=== PATIENT | female | born 1965 | race Caucasian/White ===

== ENCOUNTER 2017-04-12 08:44 | Day surgery (SDC) | payer BC ==
[2017-04-11 08:42] VITALS: BMI 19.1
[~2017-04-12 08:44] MED LIST: LACTATED RINGERS 1,000 ML IV SCH; LIDOCAINE 1% 20 ML VIAL (10MG/ML) FOR IV START INTRADERMA PRN
[2017-04-12 09:04] VITALS: RESP 16
[2017-04-12] MEDS ORDERED: PROPOFOL 10 MG/ML 20 ML VIAL IV ONE (09:37)
[2017-04-12] MEDS ORDERED: LIDOCAINE 1% INJ 10MG/ML (20 ML MDV) ONE (09:37)
--- NOTE | 2017-04-12 09:54 | P.OP ---
Date of Procedure: 04/12/17 Preoperative Diagnosis: Epigastric pain Postoperative Diagnosis: Duodenitis Gastritis Reflux esophagitis Procedure(s) Performed: EGD with biopsy using cold biopsy forceps Implants: Anesthesia: MAMTA Surgeon: Vignesh Bell Pathology: other Indications for Procedure: Operative Findings: Description of Procedure: A timeout was performed to verify the correct patient and correct procedure. Patient was on continuous vitals and pulse ox monitoring throughout the procedure. She was placed in lateral decubitus position and a bite block was inserted. A well-lubricated endoscope was passed orally. The esophagus was intubated without difficulty. The EGD was passed beyond the pylorus into the first and second portion of the duodenum. No normality is noted in the duodenum. Biopsies were taken from the duodenum 2nd an 1 st part, antrum, body , GE junction and lower esophagus using cold biopsy forceps. The scope was retroflexed. No hiatal hernia was appreciated. No mass, ulcer or bleeding noted within the gastric lumen. The GE junction is measured at 35 cm from the incisors . No evidence of reflux esophagitis. The endoscope was gradually withdrawn. No abnormality identified in the esophagus. Patient tolerated the procedure well and was taken to post anesthesia care unit in stable condition. Plan - Discharge Summary New Discharge Prescriptions: No Action traMADol HCL [Ultram] 50 mg PO Q6HR PRN PRN Reason: Pain Ondansetron [Zofran] 4 mg PO TID-W/MEALS PRN PRN Reason: Nausea And Vomiting Sucralfate [Carafate] 1 gm PO ACHS HYDROcodone/APAP 5-325MG [[place] 5-325] 1 tab PO Q6HR PRN PRN Reason: Pain Omeprazole [PriLOSEC] 40 mg PO BID Discharge Medication List HYDROcodone/APAP 5-325MG [[place] 5-325] 1 tab PO Q6HR PRN 04/11/17 [History] Omeprazole [PriLOSEC] 40 mg PO BID 04/11/17 [History] Ondansetron [Zofran] 4 mg PO TID-W/MEALS PRN 04/11/17 [History] Sucralfate [Carafate] 1 gm PO ACHS 04/11/17 [History] traMADol HCL [Ultram] 50 mg PO Q6HR PRN 04/11/17 [History]
[2017-04-12] MEDS ORDERED: SUCRALFATE 1 GM TAB PO STA (09:55)
[2017-04-12 10:35] VITALS: BP 136/80; PULSE 85
== END 2017-04-12 10:50 | disposition home or self-care (01) ==
LOC: ORWHC2ENDO 08:44
PROVIDERS: ATTEND Surgery
DX: K21.0 Gastro-esophageal reflux disease with esophagitis (principal); K29.50 Unspecified chronic gastritis without bleeding; K29.80 Duodenitis without bleeding; K52.9 Noninfective gastroenteritis and colitis, unspecified; Z79.891 Long term (current) use of opiate analgesic; Z79.899 Other long term (current) drug therapy; F17.200 Nicotine dependence, unspecified, uncomplicated
CPT/HCPCS: 88305; 88342; 43239; J2001; J2704

== ENCOUNTER 2017-04-18 11:09 | Day surgery (SDC) | payer BC ==
[~2017-04-18 11:09] MED LIST changes: +HEPARIN SODIUM,PORCINE 5,000 UNIT/ML 1 ML VIAL SQ ONE; -LACTATED RINGERS 1,000 ML IV SCH; -LIDOCAINE 1% 20 ML VIAL (10MG/ML) FOR IV START INTRADERMA PRN; +ceFAZolin 2 GM in SODIUM CHLORIDE 0.9% 100 ML IVPB ONE
[2017-04-18] MEDS ORDERED: DEXAMETHASONE SOD PHOSPHATE 10 MG/ML 1 ML VIAL IV ONE (11:28)
[2017-04-18] MEDS ORDERED: SCOPOLAMINE 1.5MG/72HR PATCH TRANSDERM ONE (11:28)
[2017-04-18] MEDS ORDERED: ONDANSETRON 4 MG/2 ML VIAL IVP ONE (11:28)
[2017-04-18] MEDS ORDERED: LACTATED RINGERS 1,000 ML IV SCH ×2 (11:28→12:30)
[2017-04-18] MEDS ORDERED: LIDOCAINE 1% 20 ML VIAL (10MG/ML) FOR IV START INTRADERMA PRN (11:28)
[2017-04-18] MEDS ORDERED: MIDAZOLAM 2 MG/2 ML VIAL IV PRN (12:16)
[2017-04-18] MEDS ORDERED: MIDAZOLAM 2 MG/2 ML VIAL IV ONE (12:21)
[2017-04-18] MEDS ORDERED: HYDROmorphone (PF) 1 MG/ML ONE (15:26)
[2017-04-18] MEDS ORDERED: NEOSTIGMINE 1 MG/ML 10 ML VIAL ONE (15:26)
[2017-04-18] MEDS ORDERED: MIDAZOLAM 2 MG/2 ML VIAL ONE (15:26)
[2017-04-18] MEDS ORDERED: LIDOCAINE 1% INJ 10MG/ML (20 ML MDV) ONE (15:26)
[2017-04-18] MEDS ORDERED: PROPOFOL 10 MG/ML 20 ML VIAL IV ONE (15:26)
[2017-04-18] MEDS ORDERED: ROCURONIUM BROMIDE 10 MG/ML 10 ML VIAL IV ONE (15:26)
[2017-04-18] MEDS ORDERED: SUCCINYLCHOLINE CHLORIDE 100 MG/5 ML SYR IV ONE (15:26)
[2017-04-18] MEDS ORDERED: fentaNYL (PF) 50 MCG/ML 2 ML AMP ONE (15:26)
[2017-04-18] MEDS ORDERED: GLYCOPYRROLATE 0.2 MG/ML 2 ML VIAL ONE (15:26)
[2017-04-18] MEDS ORDERED: SODIUM CHLORIDE 0.9% 100 ML with ceFAZolin 2,000 MG IV ONE ×2 (15:39)
[2017-04-18] MEDS ORDERED: BUPIVACAIN-EPI 0.5%-1:200,000 30 ML VIAL SQ ONE ×3 (15:43→16:14)
[2017-04-18] MEDS ORDERED: LACTATED RINGERS 1,000 ML IV ONE ×4 (16:01→17:57)
--- NOTE | 2017-04-18 16:40 | P.OP ---
Date of Procedure: 04/18/17 Preoperative Diagnosis: Right upper quadrant pain Postoperative Diagnosis: Chronic cholecystitis Procedure(s) Performed: Laparoscopic cholecystectomy Implants: Anesthesia: MAMTA Surgeon: Vignesh Bell Pathology: other Condition: stable Disposition: PACU Indications for Procedure: Operative Findings: Description of Procedure: The patient is a 52-year-old female who presented with epigastric and upper abdominal pain which localized in the right upper quadrant was tender Clinical diagnosis of chronic cholecystitis was made. The risks benefits and possible complications of the procedure were discussed in detail and informed consent was obtained. Patient was identified in the preop operating holding area questions were answered and she was taken back to the operating room where she was placed in the supine position. She was given general anesthesia with endotracheal intubation followed by the placement of an orogastric tube and a Garsia catheter appropriate timeout was called the indication procedure ALLERGIES medications from her prophylaxis were all discussed. Abdomen is prepped and draped in the usual sterile surgical fashion Duarte's point was identified and after making an incision Veress needle was introduced. Abdominous insufflated to 15 mmHg after checking with drop test. The Veress needle was then removed and then Optiview technique was used to enter the abdominal cavity. Once that was done a 10 mm epigastric port and two 5 mm right upper quadrant ports were placed.the gallbladder was retracted cephalad and superiorly.The fundus was retracted so as to make the Calot's triangle more visible. There were inflammatory peritoneal adhesions and the gallbladder was distended. The adhesions were taken down with the help of blunt dissection and using some electrocautery, skeletonizing the cystic duct and the multiple branches of the cystic artery. Cystic duct was clipped proximally and distally followed by clipping of the branches of the cystic artery following which they were transected sharply with the help of the floridalma. The gallbladder was then taken off the gallbladder fossa with the help of electrocautery and placed in an Endo Catch bag and removed through the 10 m port site after dilating the port site with a Loan. The port was replaced and the gallbladder fossa was inspected and hemostasis was secured with the help of electrocautery the abdomen was thoroughly irrigated and sucked dry. Trae were noted to be in the appropriate position at this time to take procedure was terminated. the 10 mm port was removed and the port site was closed with the help of a Omar Crooks using 0 Vicryl.The Gas was shut off and all the 5 mm ports were removed. The abdomen was thoroughly desufflated. The remaining local anesthesia was infiltrated into the incisions and the incisions were closed with the help of 4-0 Monocryl . Dermabond was applied patient was extubated and taken to recovery room in stable condition There were no complications. Plan - Discharge Summary New Discharge Prescriptions: No Action traMADol HCL [Ultram] 50 mg PO Q6HR PRN PRN Reason: Pain Ondansetron [Zofran] 4 mg PO TID-W/MEALS PRN PRN Reason: Nausea And Vomiting Sucralfate [Carafate] 1 gm PO ACHS HYDROcodone/APAP 5-325MG [[place] 5-325] 1 tab PO Q6HR PRN PRN Reason: Pain Omeprazole [PriLOSEC] 40 mg PO BID Discharge Medication List HYDROcodone/APAP 5-325MG [[place] 5-325] 1 tab PO Q6HR PRN 04/11/17 [History] Omeprazole [PriLOSEC] 40 mg PO BID 04/11/17 [History] Ondansetron [Zofran] 4 mg PO TID-W/MEALS PRN 04/11/17 [History] Sucralfate [Carafate] 1 gm PO ACHS 04/11/17 [History] traMADol HCL [Ultram] 50 mg PO Q6HR PRN 04/11/17 [History] Follow up Appointment(s)/Referral(s): Vignesh Bell MD [STAFF PHYSICIAN] - 10 Days Activity/Diet/Wound Care/Special Instructions: Regular diet AMbulate as tolerated Use incentive spirometer as directed No driving on pain medications or when having pain May shower in 24 hours No heavy liftin more than 20 lbs for 6 week Discharge Disposition: HOME SELF-CARE
[2017-04-18 16:52] VITALS: TEMP 97.2
[2017-04-18 16:55] VITALS: RESP 16
[2017-04-18] MEDS: HYDROmorphone 1 MG/ML 1 ML SYRINGE IVP PRN ×2 (17:00→17:09)
[2017-04-18] MEDS ORDERED: MEPERIDINE 50 MG/ML SYRINGE IVP ONE ×2 (17:21→17:38)
[2017-04-18] MEDS ORDERED: HYDROcodone/APAP 5-325MG 1 EACH TAB PO ONE (18:20)
[2017-04-18 18:34] VITALS: BP 90/55; PULSE 76
== END 2017-04-18 18:58 | disposition home or self-care (01) ==
LOC: OR 11:09
PROVIDERS: ATTEND Surgery
DX: K81.1 Chronic cholecystitis (principal); F17.200 Nicotine dependence, unspecified, uncomplicated; K21.9 Gastro-esophageal reflux disease without esophagitis; Z79.899 Other long term (current) drug therapy
CPT/HCPCS: 47562; 88304; J2250; J1644; J1100; J2710; J2175; J2405; J2001; J3010; J1170; J0690; J0330; J2704

== ENCOUNTER → 2017-05-21 | Outpatient (CLI) | payer BC ==
--- NOTE | 2017-05-21 13:26 | CT ---
EXAMINATION TYPE: CT abdomen pelvis w con DATE OF EXAM: 05/21/2017 COMPARISON: 04/28/2012 HISTORY: 52-year-old female with generalized abdominal pain. History of cholecystectomy in April 2017. TECHNIQUE: Contiguous axial scanning of the abdomen and pelvis following administration of 100 ml Omn ipaque 300 IV contrast. Delayed images through the kidneys and coronal/sagittal reconstructions perf ormed. CT DLP: 677 mGycm Automated exposure control for dose reduction was used. FINDINGS: The heart is normal size without pericardial effusion. Lung bases are clear without pleural effusion. No focal liver lesions seen. Cholecystectomy clips are present. There has been interval enlargement of the bile duct measuring 7 mm versus 4 mm, previously. Portal venous system is patent. Adrenal glands, kidneys with extrarenal pelves, spleen, and pancreas show no gross abnormality. Interval cholecystectomy. There is a 7 mm nodular density along the left paramedian upper abdominal l inea alba, axial image 19 and some adjacent stranding in the subcutaneous fat., Axial image 19 and 20 . No dilated small bowel, free fluid, or free air. No mesenteric or retroperitoneal lymphadenopathy francisca ntified. Oral contrast has progressed to the distal transverse colon. There is moderate stool in the transvers e colon. Some mildly prominent air-filled loops of small bowel measure up to 2.5 cm. No abnormal dilatation or transition point. Bladder is partially distended with mild circumferential wall thickening. Uterus and ovaries are visu alized. Trace cul-de-sac free fluid likely physiologic. Bones: Mild degenerative changes at the hips. Disc/endplate degenerative change at L5-S1 and facet ar thropathy mid to lower lumbar spine with trace grade 1 retrolisthesis at L3-L4. No osseous destructiv e process. IMPRESSION: 1. INTERVAL ENLARGEMENT OF THE BILE DUCT FROM 4 MM TO 7 MM CAN BE IN KEEPING WITH POSTCHOLECYSTECTOMY STATUS. CORRELATE WITH ALKALINE PHOSPHATASE AND BILIRUBIN LEVELS. 2. A 7 MM NODULAR DENSITY ALONG THE UPPER ABDOMINAL LINEA ALBA WITH ADJACENT SUBCUTANEOUS FAT STRANDI NG. CORRELATE FOR LOCAL INFLAMMATION SUCH FROM CELLULITIS OR SOME TYPE OF FOREIGN BODY REACTION/S UTURE GRANULOMA. 3. CIRCUMFERENTIAL BLADDER WALL THICKENING; CORRELATE TO EXCLUDE CYSTITIS.
== END | disposition home or self-care (01) ==
LOC: RADCTMAIN 10:37
PROVIDERS: ATTEND Surgery
DX: K83.8 Other specified diseases of biliary tract (principal); N32.89 Other specified disorders of bladder; R10.84 Generalized abdominal pain; Z90.49 Acquired absence of other specified parts of digestive tract
CPT/HCPCS: 74177; Q9967

== ENCOUNTER → 2017-05-23 | Outpatient (CLI) | payer BC ==
[2017-05-23 14:33] LABS: ALT 670 U/L (9-52); AST 378 U/L (14-36); Alkaline Phosphatase 217 U/L (38-126); Amylase 122 U/L (30-110); Anion Gap 11 mmol/L; Bilirubin, Delta 0.3 mg/dL (0.0-0.2); Blood Urea Nitrogen 12 mg/dL (7-17); Calcium 11.5 mg/dL (8.4-10.2); Carbon Dioxide 27 mmol/L (22-30); Chloride 102 mmol/L (98-107); Glucose 87 mg/dL (74-99); Non-African American GFR(MDRD) >60 (>60 ml/min/1.73 sqM); Potassium 4.8 mmol/L (3.5-5.1); Sodium 140 mmol/L (137-145); Total Bilirubin 0.8 mg/dL (0.2-1.3); Total Protein 7.8 g/dL (6.3-8.2)
== END | disposition home or self-care (01) ==
LOC: LABWHC1 13:48
PROVIDERS: ATTEND Surgery
DX: K83.8 Other specified diseases of biliary tract (principal)
CPT/HCPCS: 36415; 80053; 82150; 82248; 83690

== ENCOUNTER → 2017-05-30 | Outpatient (CLI) | payer BC ==
[2017-05-30 14:28] LABS: ALT 169 U/L (9-52); AST 41 U/L (14-36); Alkaline Phosphatase 156 U/L (38-126); Bilirubin, Delta 0.2 mg/dL (0.0-0.2); Total Bilirubin 0.5 mg/dL (0.2-1.3); Total Protein 7.2 g/dL (6.3-8.2)
[2017-05-30 15:06] LABS: Hepatitis B Core IgM Index 0.03
[2017-05-30 15:17] LABS: Hepatitis C Virus IgG Ab Negative (Negative); Hepatitis C Virus IgG Index 0.09
== END | disposition home or self-care (01) ==
LOC: LABWHC1 14:00
PROVIDERS: ATTEND Physician Assistant
DX: R74.8 Abnormal levels of other serum enzymes (principal)
CPT/HCPCS: 36415; 80074; 80076

== ENCOUNTER → 2017-06-13 | Outpatient (CLI) | payer BC ==
[2017-06-13 21:17] LABS: Bilirubin, Delta 0.3 mg/dL (0.0-0.2); Total Bilirubin 0.8 mg/dL (0.2-1.3); Total Protein 9.2 g/dL (6.3-8.2)
--- NOTE | 2017-06-14 07:42 | MR ---
EXAMINATION TYPE: MR liver wo/w con DATE OF EXAM: 06/13/2017 COMPARISON: CT abdomen and pelvis exams May 21, 2017 and older study April 28, 2012. HISTORY: Abnormal liver function CONTRAST: Standard multiplanar, multisequence MRI departmental protocol utilizing 5.0 mL intravenous Gadavist g adolinium contrast. Imaging of the abdomen is performed focusing on the liver. FINDINGS: LIVER/GB: Liver is overall normal in size. In posterior segment right hepatic dome there are 2 tiny n onenhancing round T2 hyperintense foci felt to reflect simple cysts seen best on images 32 and 33 ser ies 601 measuring up to 3 mm in size no worrisome solid or cystic intrahepatic mass is identified. No suspicious enhancement is seen. Gallbladder is surgically absent. Common bile duct measures up to 8 to 9 mm which is within normal limits after cholecystectomy. No suspicious intrahepatic ductal dilata tion is seen. No significant fatty infiltration seen on in and out of phase imaging. OTHER: Lung bases are grossly clear, there is no pleural or pericardial effusion seen. The spleen, pa ncreas, and both adrenal glands are normal in size and appear grossly unremarkable. Left kidney is sl ightly asymmetrically larger versus right kidney, this is unchanged from 2012 CT. No hydronephrosis i s evident bilaterally. There is no suspicious small or large bowel dilatation. No concerning abdomina l fluid collection or ascites is seen. No greater than 1 cm abdominal adenopathy is noted. There is f acet arthropathy and disc space narrowing in the lower lumbar spine most prominent at lumbosacral loren ction. IMPRESSION: No worrisome intrahepatic mass or intrapelvic ductal dilatation is seen.
== END | disposition home or self-care (01) ==
LOC: RADMRIMAIN 20:01
PROVIDERS: ATTEND Physician Assistant
DX: R94.5 Abnormal results of liver function studies (principal)
CPT/HCPCS: 80076; 74183; 36415; A9581

== ENCOUNTER 2018-01-27 11:33 | Inpatient (IN) | payer BC ==
[2018-01-27] MEDS: DEXTROSE 5%-0.45% NACL 1,000 ML IV SCH ×2 (15:05→21:20)
[2018-01-27] MEDS ORDERED: PIPERACILLIN-TAZOBACTAM 3.375 GM in DEXTROSE/WATER 1 50ML.BAG IVPB SCH (17:00)
[2018-01-27] MEDS: ACETAMINOPHEN TAB 325 MG TAB PO PRN (19:29)
[2018-01-27] MEDS: THIAMINE 100 MG TAB PO SCH (21:19)
[2018-01-28] MEDS ORDERED: PIPERACILLIN-TAZOBACTAM 3.375 GM VIAL IVPB SCH
[2018-01-28] MEDS: PIPERACILLIN-TAZOBACTAM 3.375 GM in DEXTROSE/WATER 1 50ML.BAG IVPB SCH ×2 (00:04→07:45)
[2018-01-28] MEDS: DEXTROSE 5%-0.45% NACL 1,000 ML IV SCH ×2 (07:44→15:41)
[2018-01-28] MEDS: ACETAMINOPHEN TAB 325 MG TAB PO PRN ×3 (07:46→21:06)
[2018-01-28] MEDS: NICOTINE 21MG/24HR PATCH TRANSDERM SCH (07:47)
[2018-01-28] MEDS: PANTOPRAZOLE 40 MG TABLET PO SCH (07:47)
[2018-01-28] MEDS: ENOXAPARIN 40 MG/0.4 ML SYRINGE SQ SCH (07:47)
[2018-01-28] MEDS: THIAMINE 100 MG TAB PO SCH ×2 (07:47→21:04)
--- NOTE | 2018-01-28 08:17 | XR ---
EXAMINATION TYPE: XR chest 2V DATE OF EXAM: 01/28/2018 COMPARISON: NONE HISTORY: Shortness of breath TECHNIQUE: Frontal and lateral views of the chest are obtained. FINDINGS: Scattered senescent parenchymal changes noted. No evidence for infiltrate. No evidence for atelectasis. Heart size is stable. Mediastinal structures are stable and grossly unremarkable. No evidence for hilar prominence. Degenerative changes dorsal spine. IMPRESSION: 1. No evidence for acute pulmonary disease.
[2018-01-28 08:43] LABS: Basophils % (A) 0 %; Eosinophils # (A) 0.2 k/uL (0-0.7); Eosinophils % (A) 4 %; HCT 35.4 % (34.0-46.0); HGB 11.3 gm/dL (11.4-16.0); Lymphocytes # (A) 1.7 k/uL (1.0-4.8); Lymphocytes % (A) 31 %; MCHC 31.9 g/dL (31.0-37.0); MCV 97.1 fL (80.0-100.0); Mean Platelet Volume 7.6; Monocytes # (A) 0.4 k/uL (0-1.0); Monocytes % (A) 7 %; Neutrophils # (A) 2.9 k/uL (1.3-7.7); Neutrophils % (A) 53 %; Platelet Count 257 k/uL (150-450); RBC 3.64 m/uL (3.80-5.40); RDW 13.4 % (11.5-15.5); WBC 5.5 k/uL (3.8-10.6)
[2018-01-28 09:03] LABS: ALT 35 U/L (9-52); AST 24 U/L (14-36); Albumin 3.3 g/dL (3.5-5.0); Alkaline Phosphatase 72 U/L (38-126); Anion Gap 8 mmol/L; Blood Urea Nitrogen 5 mg/dL (7-17); Calcium 10.4 mg/dL (8.4-10.2); Carbon Dioxide 26 mmol/L (22-30); Chloride 111 mmol/L (98-107); Glucose 92 mg/dL (74-99); Potassium 4.2 mmol/L (3.5-5.1); Sodium 145 mmol/L (137-145); Total Bilirubin 0.8 mg/dL (0.2-1.3); Total Protein 5.9 g/dL (6.3-8.2)
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
[2018-01-28] MEDS: AMOXIC-POT CLAV 875-125MG 1 EACH TAB PO SCH (21:05)
[2018-01-29 05:57] VITALS: RESP 16
[2018-01-29] MEDS: PANTOPRAZOLE 40 MG TABLET PO SCH (07:34)
[2018-01-29] MEDS: NICOTINE 21MG/24HR PATCH TRANSDERM SCH (07:34)
[2018-01-29] MEDS: ENOXAPARIN 40 MG/0.4 ML SYRINGE SQ SCH (07:34)
[2018-01-29] MEDS: THIAMINE 100 MG TAB PO SCH (07:34)
[2018-01-29] MEDS: ACETAMINOPHEN TAB 325 MG TAB PO PRN (07:34)
[2018-01-29] MEDS: AMOXIC-POT CLAV 875-125MG 1 EACH TAB PO SCH (07:34)
[2018-01-29 14:46] VITALS: BP 107/69; PULSE 103; TEMP 98.1
--- NOTE | 2018-01-29 15:35 | XR ---
EXAM TYPE: LUMBAR SPINE X RAY SERIES COMPARISON: NONE HISTORY: Back pain TECHNIQUE: 3 views are submitted. FINDINGS: Alignment is anatomic. The pedicles are intact. The transverse processes are intact. There is no s pondylolysis or spondylolisthesis. Slight curvature the spine with hypertrophic changes noted. Surgi rosmery clips in the gallbladder fossa. Vacuum disc and severe facet arthropathy L5-S1. Severe facet arthropathy L4-5 with moderate degenerat sebastian disc disease. Mild degenerative disc disease at the remaining levels. IMPRESSION: 1. Multilevel degenerative disc disease with severe changes at L5-S1 with vacuum disc.
--- NOTE | 2018-01-29 21:48 | DS ---
DISCHARGE SUMMARY DATE OF ADMISSION: 01/27/2018 DATE OF DISCHARGE: 01/29/2018 FINAL DIAGNOSES: 1. Major depression with suicide attempt. 2. Chronic nicotine dependence. 3. Primary osteoarthritis of different joints, including the lumbar spine. 4. Chronic right upper quadrant pain, for which patient is due to follow up at [facility]. 5. Aspiration pneumonia from altered mental status. HOSPITAL COURSE: This patient's boyfriend killed himself about a week ago. Patient took an overdose of medications and was transferred from [facility] to [facility]. The patient had aspiration pneumonia, which is clinically resolved. The patient does smoke cigarettes. The patient was having lower back pain, found to have evidence of osteoarthritis. She was prescribed Tylenol for the same. Patient was told to get an appointment at [facility]. Patient had a sitter. The patient is being sent down to the psychiatry unit, as patient was also petitioned and certified. Otherwise patient is doing better, tolerating a diet. On examination: PSYCHIATRIC: Patient is looking better, communicating. LUNGS: Fair air entry. CONSULTATIONS: 1. Dr. Pandey from Psychiatry. 2. Dr. Prescott from Pulmonary. DISCHARGE MEDICATIONS: 1. Protonix 40 mg a day. 2. Thiamine 100 mg p.o. daily. 3. [place] 7.5/325 one tablet q.6 p.r.n. 4. Plain Tylenol 650 mg q.6 p.r.n. The patient when discharged should follow up at [facility] and with her family doctor. Patient also advised against smoking. MMODL / IJN: [id number] /
--- NOTE | 2018-01-30 08:57 | CDI ---
Last Revision, September 2017 Acute respiratory failure secondary to aspiration pneumonia, unspecified Documentation Clarification Form Date: 01/30/2018 8:48:00 PM From: Modesta Lyn CCS, CCDS Admit Date: 01/27/2018 1:45:00 PM Patient Name: Kendra De Oliveira Visit Number: [id number] Discharge Date: ATTENTION: The Clinical Documentation Specialists (CDI) and [facility] Coding Staff appreciate your assistance in clarifying documentation. Please respond to the clarification below the line at the bottom and electronically sign. The CDI & [facility] Coding staff will review the response and follow-up if needed. Please note: Queries are made part of the Legal Health Record. If you have any questions, please contact the author of this message via ITS. Dr. Brenda Prescott: 52 yo female, transferred from [facility] ER on 01/25/19 after ingesting a large amount of Lyrica, Valium & other unidentified prescription medications, also alcohol found in her system, intentional suicide attempt and diagnosed with aspiration pneumonia. Documentation and location in medical record included "ventilator dependent respiratory failure". The patient is not on home O2 or have a permanent tracheostomy. Clinical Indicators: Patient was intubated & extubated next day at [facility]. Vital signs on arrival to [facility]: T 97.7, P 92, R 20, BP 101/66, PO 92 RA. Treatment: IV Dextrose, IV Zosyn, po Thiamine. In your professional opinion, can you please clarify the patient's respiratory failure: Acuity: o Acute o Chronic o Acute on Chronic Specificity: o Respiratory Failure, further specify (if known): o With hypercapnia? o With hypoxia? o Other, please specify o Unable to determine Please continue to document in your progress notes and discharge summary in order to capture severity of illness and risk of mortality. Include clinical findings that support your diagnosis. MTDD
== END 2018-01-29 16:15 | disposition still patient (30) | DRG 917 ==
LOC: 4MS4W 13:45
PROVIDERS: ADMIT Hospitalist; ATTEND Hospitalist
DX: T42.4X2A Poisoning by benzodiazepines, intentional self-harm, initial encounter (principal); J96.00 Acute respiratory failure, unspecified whether with hypoxia or hypercapnia; J69.0 Pneumonitis due to inhalation of food and vomit; Z99.11 Dependence on respirator [ventilator] status; F17.210 Nicotine dependence, cigarettes, uncomplicated; F32.9 Major depressive disorder, single episode, unspecified; R13.10 Dysphagia, unspecified; K21.9 Gastro-esophageal reflux disease without esophagitis; M15.9 Polyosteoarthritis, unspecified; M47.9 Spondylosis, unspecified; Z80.1 Family history of malignant neoplasm of trachea, bronchus and lung; Z80.8 Family history of malignant neoplasm of other organs or systems; G89.29 Other chronic pain; Z71.6 Tobacco abuse counseling
CPT/HCPCS: 71046; 72100; 80053; 85025

== ENCOUNTER 2018-01-29 15:40 | Inpatient (IN) | payer BC ==
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
[2018-01-29] MEDS ORDERED: MAG HYDROX/AL HYDROX/SIMETH 30 ML CUP PO PRN (16:51)
[2018-01-29] MEDS: IBUPROFEN 400 MG TAB PO PRN (17:30)
[2018-01-29] MEDS: ACETAMINOPHEN TAB 325 MG TAB PO PRN (20:44)
[2018-01-29] MEDS: AMOXIC-POT CLAV 875-125MG 1 EACH TAB PO SCH (20:45)
[2018-01-29] MEDS: BACITRACIN 500 UNIT/GM OINT 28.4 GM TUBE TOPICAL SCH (20:45)
[2018-01-29] MEDS: HYDROcodone/APAP 5-325MG 1 EACH TAB PO PRN (22:06)
[2018-01-30] MEDS: NICOTINE 21MG/24HR PATCH TRANSDERM SCH (08:02)
[2018-01-30] MEDS: AMOXIC-POT CLAV 875-125MG 1 EACH TAB PO SCH ×2 (08:02→20:57)
[2018-01-30] MEDS: PANTOPRAZOLE 40 MG TABLET PO SCH (08:03)
[2018-01-30] MEDS: HYDROcodone/APAP 5-325MG 1 EACH TAB PO PRN ×2 (08:03→19:47)
[2018-01-30] MEDS: THIAMINE 100 MG TAB PO SCH (08:03)
[2018-01-30] MEDS: CITALOPRAM HYDROBROMIDE 10 MG TAB PO SCH (08:03)
[2018-01-30 08:58] LABS: Anion Gap 8 mmol/L; Blood Urea Nitrogen 9 mg/dL (7-17); Calcium 11.1 mg/dL (8.4-10.2); Carbon Dioxide 29 mmol/L (22-30); Chloride 106 mmol/L (98-107); Glucose 84 mg/dL (74-99); Potassium 4.5 mmol/L (3.5-5.1); Sodium 143 mmol/L (137-145)
[2018-01-30] MEDS: BACITRACIN 500 UNIT/GM OINT 28.4 GM TUBE TOPICAL SCH ×2 (08:59→20:57)
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
[2018-01-30] MEDS: IBUPROFEN 400 MG TAB PO PRN (13:02)
--- NOTE | 2018-01-30 15:39 | CONS ---
CONSULTATION DATE OF SERVICE: 01/30/2018 REASON FOR CONSULTATION: Medical management requested by Dr. Pandey. CONSULTATION: This is a 52-year-old patient who initially presented to [facility] after taking an overdose of Lyrica, Valium, alcohol in attempt to kill herself, had a suicide note. Admitted to the ICU there, intubated, successfully extubated, had some aspiration pneumonia, and for psychiatry care transferred here to [facility]. When became stable yesterday was transferred to the psychiatry unit. Patient's respiratory symptoms are greatly improved. Patient is a smoker. Patient has had chronic right upper abdominal pain for which she is supposed to follow up at [facility]. Patient has also been having some low back pain. X-ray did confirm some osteoarthritis. Otherwise, patient has been walking, up and about, tolerating a diet, overall feels better, not suicidal anymore. REVIEW OF SYSTEMS: CONSTITUTIONAL: None. HEENT: None. RESPIRATORY: None. CARDIOVASCULAR: None. GASTROINTESTINAL: None. GENITOURINARY: None. MUSCULOSKELETAL: Low back pain. DERMATOLOGICAL: None. HEMATOLOGICAL: None. LYMPHATIC: None. PSYCHIATRY: Depression improving. NEUROLOGICAL: None. PAST MEDICAL HISTORY: Osteoarthritis, chronic right upper quadrant pain, aspiration pneumonia. PAST SURGICAL HISTORY: Appendectomy, , cholecystectomy, tonsillectomy, ruptured appendix, Lap-sheree. SOCIAL HISTORY: The patient was living prior to coming in with a daughter since the fiance killed himself. She is employed in [[employer]], smokes a pack a day. Alcohol occasionally. FAMILY HISTORY: Lung and bone cancer. CURRENT MEDICATIONS: Augmentin 875 twice a day, Celexa 10 mg a day, Motrin p.r.n., nicotine patch, Protonix, thiamine. ALLERGIES: None. PHYSICAL EXAMINATION: Temp 97.8, pulse 84, respiration 14, blood pressure 115/58, pulse ox 100% on room air. GENERAL APPEARANCE: Average build, sitting up, comfortable. EYES: Pupils equal, conjunctivae normal. HEENT: External appearance of nose and ears normal, otic cavity normal. NECK: JVD not raised. Mass not palpable. Respiratory effort normal. Lungs are clear. CARDIOVASCULAR: First and second sounds are normal. No edema. ABDOMEN: Soft, nontender. Liver and spleen not palpable. LYMPHATIC: No lymph node palpable in neck or axillae. PSYCHIATRY: Alert and oriented x3. Mood and affect, improved. INVESTIGATIONS: Potassium 4.5, BUN and creatinine normal. TSH normal. ASSESSMENT: 1. Aspiration pneumonia, clinically much improved. 2. Chronic nicotine dependence. 3. Lumbar spine osteoarthritis with osteoarthritis in other joints including the hands. 4. Chronic right upper quadrant pain for which she is to follow up at [facility]. PLAN: Patient to complete a course of antibiotic. Continue with nicotine patch. Patient wants to get an Orthopedic opinion. Will consult Dr. Guidry for the same. Patient should follow up with family doctor upon discharge. Thank you Dr. Pandey. FREDY / ARPITN: [id number] /
[2018-01-30] MEDS: ACETAMINOPHEN TAB 325 MG TAB PO PRN (16:51)
[2018-01-31 07:11] VITALS: RESP 16
[2018-01-31] MEDS: AMOXIC-POT CLAV 875-125MG 1 EACH TAB PO SCH (07:50)
[2018-01-31] MEDS: PANTOPRAZOLE 40 MG TABLET PO SCH (07:50)
[2018-01-31] MEDS: CITALOPRAM HYDROBROMIDE 10 MG TAB PO SCH (07:50)
[2018-01-31] MEDS: THIAMINE 100 MG TAB PO SCH (07:50)
[2018-01-31] MEDS: NICOTINE 21MG/24HR PATCH TRANSDERM SCH (07:51)
[2018-01-31] MEDS: BACITRACIN 500 UNIT/GM OINT 28.4 GM TUBE TOPICAL SCH ×2 (07:52→20:43)
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
[2018-01-31] MEDS: IBUPROFEN 400 MG TAB PO PRN (13:34)
--- NOTE | 2018-01-31 16:56 | PN ---
PROGRESS NOTE DATE OF SERVICE: 01/31/18 PRESENTING COMPLAINT: Depression. INTERVAL HISTORY: This is a patient with depression, suicidal ideation. Doing much better, up and about. Seen by [facility], Dr. Guidry's team. They will see her further in the office. They will probably do another MRI. I did tell the patient that probably her abdominal pain is referred pain from the back. The patient overall feeling better, tolerating a diet, which is improving. REVIEW OF SYSTEMS: Done for constitutional, cardiovascular, GI, pulmonary; relevant findings as above. CURRENT MEDICATIONS: Reviewed. EXAMINATION: Temperature 97.5, pulse 72, respiration 16, blood pressure 118/64, pulse ox 98% on room air. GENERAL APPEARANCE: Sitting up, comfortable. EYES: Pupils equal. Conjunctivae normal. HEENT: External appearance of nose and ears normal. Oral cavity normal. NECK: JVD not raised. Mass not palpable. RESPIRATORY: Effort normal. Lungs, improved air entry. CARDIOVASCULAR: 1st and 2nd sounds, no edema. ABDOMEN: Soft, nontender. Liver and spleen not palpable. PSYCHIATRY: Alert and oriented x3. Mood and affect improving. INVESTIGATIONS: TSH normal. ASSESSMENT: 1. Aspiration pneumonia clinically now resolved. 2. Chronic nicotine dependence. 3. Lumbar spine osteoarthritis and also osteoarthritis in other joints including the hands. 4. Right upper quadrant pain now felt to be referred from the back. The patient's abdominal symptoms are minimal, if any. PLAN: The patient follow up with Dr. Guidry in the outpatient. Will DC patient's antibiotics. MMODL / IJN: [id number] /
[2018-01-31] MEDS: HYDROcodone/APAP 5-325MG 1 EACH TAB PO PRN (20:44)
[2018-02-01] MEDS: NICOTINE 21MG/24HR PATCH TRANSDERM SCH (08:05)
[2018-02-01] MEDS: CITALOPRAM HYDROBROMIDE 10 MG TAB PO SCH (08:05)
[2018-02-01] MEDS: THIAMINE 100 MG TAB PO SCH (08:05)
[2018-02-01] MEDS: PANTOPRAZOLE 40 MG TABLET PO SCH (08:05)
[2018-02-01] MEDS: BACITRACIN 500 UNIT/GM OINT 28.4 GM TUBE TOPICAL SCH ×2 (08:06→22:13)
[2018-02-01] MEDS: IBUPROFEN 400 MG TAB PO PRN (14:57)
--- NOTE | 2018-02-01 18:35 | P.PN ---
Progress Note - Text Progress Note Date: 02/01/18 Patient was seen today. She reports being compliant with her medications however she does not know the name of the medication she is taking currently. She reports going to all group. Through attending her groups she claims to have learned that her life is more valuable then getting up. She regrets the fact that she overdosed on medications. He reports good sleep and appetite. She complains of chest pain and back pain on breathing she is wondering if there is anything wrong with her lungs. She asked if she could could take antibiotics again to make sure that she does not have any infection. She was provided with reassurance and was advised to take when necessary Tylenol or Motrin. If her symptoms does not improve with the pain medications will consult medicine. 52-year-old female. She appeared younger than her stated age. She is pleasant and cooperative. No psychomotor agitation or retardation noted. Her speech is soft and normal rate and volume. Her thought process is goal directed. Her mood is reported as okay and affect constricted. Denies auditory or visual hallucinations. Denies paranoia. He is alert and oriented 4. She denies current suicidal or homicidal ideations. Her insight and judgment are improving. Plan: continue on Celexa 10 mg in the morning. Continue to monitor for safety.
[2018-02-01] MEDS: ACETAMINOPHEN TAB 325 MG TAB PO PRN (20:05)
[2018-02-01] MEDS: HYDROcodone/APAP 5-325MG 1 EACH TAB PO PRN (21:45)
[2018-02-01] MEDS: MELATONIN 3 MG TABLET PO SCH (22:03)
[2018-02-02] MEDS: NICOTINE 21MG/24HR PATCH TRANSDERM SCH (08:45)
[2018-02-02] MEDS: PANTOPRAZOLE 40 MG TABLET PO SCH (08:45)
[2018-02-02] MEDS: THIAMINE 100 MG TAB PO SCH (08:45)
[2018-02-02] MEDS: CITALOPRAM HYDROBROMIDE 10 MG TAB PO SCH (08:45)
[2018-02-02] MEDS: BACITRACIN 500 UNIT/GM OINT 28.4 GM TUBE TOPICAL SCH ×2 (08:45→21:02)
[2018-02-02] MEDS: HYDROcodone/APAP 5-325MG 1 EACH TAB PO PRN (08:47)
[2018-02-02] MEDS: IBUPROFEN 400 MG TAB PO PRN (11:46)
--- NOTE | 2018-02-02 18:04 | P.PN ---
Progress Note - Text Progress Note Date: 02/02/18 Patient was seen today. She reports going to all groups . He reports good appetite. She reports tossing due to pain and reports disturbed sleep. She is compliant with her medications. No side effects reported. 52-year-old female. She appeared younger than her stated age. She is pleasant and cooperative. No psychomotor agitation or retardation noted. Her speech is soft and normal rate and volume. Her thought process is goal directed. Her mood is reported as better and affect constricted. Denies auditory or visual hallucinations. Denies paranoia. He is alert and oriented 4. She denies current suicidal or homicidal ideations. Her insight and judgment are improving. Plan: continue on Celexa 10 mg in the morning. Continue to monitor for safety.
[2018-02-02] MEDS: MELATONIN 3 MG TABLET PO SCH (21:06)
[2018-02-02] MEDS: ACETAMINOPHEN TAB 325 MG TAB PO PRN (21:06)
[2018-02-03 06:38] VITALS: TEMP 98.6
[2018-02-03 07:31] VITALS: BP 102/53; PULSE 72
[2018-02-03] MEDS: BACITRACIN 500 UNIT/GM OINT 28.4 GM TUBE TOPICAL SCH (08:34)
[2018-02-03] MEDS: NICOTINE 21MG/24HR PATCH TRANSDERM SCH (08:34)
[2018-02-03] MEDS: HYDROcodone/APAP 5-325MG 1 EACH TAB PO PRN (08:35)
[2018-02-03] MEDS: CITALOPRAM HYDROBROMIDE 10 MG TAB PO SCH (08:36)
[2018-02-03] MEDS: THIAMINE 100 MG TAB PO SCH (08:36)
[2018-02-03] MEDS: PANTOPRAZOLE 40 MG TABLET PO SCH (08:36)
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
== END 2018-02-03 10:50 | disposition home or self-care (01) | DRG 881 ==
LOC: 3MHU 16:12
PROVIDERS: ADMIT Psychiatry & Neurology Psychiatry; ATTEND Psychiatry & Neurology Psychiatry
DX: F43.21 Adjustment disorder with depressed mood (principal); J69.0 Pneumonitis due to inhalation of food and vomit; F17.210 Nicotine dependence, cigarettes, uncomplicated; K21.9 Gastro-esophageal reflux disease without esophagitis; M46.96 Unspecified inflammatory spondylopathy, lumbar region; M47.816 Spondylosis without myelopathy or radiculopathy, lumbar region; M51.36 Other intervertebral disc degeneration, lumbar region; Z63.4 Disappearance and death of family member; Z79.899 Other long term (current) drug therapy; Z80.1 Family history of malignant neoplasm of trachea, bronchus and lung; Z80.8 Family history of malignant neoplasm of other organs or systems; Z91.5 Personal history of self-harm
CPT/HCPCS: 80048; 84443